=== PATIENT | female | born 1940 | race Caucasian/White ===

== ENCOUNTER 2023-12-01 22:30 | Outpatient (CLI) | payer BC, SELFPAY | END 2023-12-01 22:31 | disposition home or self-care (01) | LOC: AMB 12-20 15:54 | PROVIDERS: Visit Provider Emergency Medicine Emergency Medical Services | DX: R09.02 Hypoxemia (principal); R07.89 Other chest pain; K44.9 Diaphragmatic hernia without obstruction or gangrene | CPT/HCPCS: A0425; A0427 ==